=== PATIENT | male | born 1985 | race Caucasian/White ===

== ENCOUNTER 2016-12-17 11:49 | Emergency (ER) | payer OTHER ==
--- NOTE | 2016-12-17 13:30 | DIAGNOSTIC IMAGING REPORT ---
PROCEDURE: XR CHEST 2 VIEW INDICATION: CHEST PAIN TECHNIQUE: PA and lateral views. COMPARISON: None. FINDINGS: Lungs are clear. Heart and mediastinum are normal. Thorax is normal. IMPRESSION: 1. Negative chest.
--- NOTE | 2016-12-17 14:31 | ED ORDER SUMMARY ---
..... Patient: COURTNEY HOWARD OrderSheet [facility] VisitID: [id number] [address] [place] [address] 31y, M Registration Date/Time: 12/17/2016 ORDER SHEET Weight: 77.5 kg (stated) Allergies: No Known Drug Allergy GENERAL ORDERS: Chest 2V Urgent (12:12/17/2016 PHtnchinson DO) (Ack 12:23 LTapper) (14:34 KWilliams R.N.) Bolt Sorter (Continuous) (12:12/17/2016 [facility]) (12:18 DMaziarka R.N.) UA-Culture if indicated Urgent (12:12/17/2016 [facility]) (12:23 LTapper) Cardiac Panel Stat (12:12/17/2016 [facility]) (12:18 DMaziarka R.N.) BNP Urgent [facility] (12:18 DMaziarka R.N.) D-Dimer Urgent (12:12/17/2016 [facility]) (12:18 DMaziarka R.N.) Amylase Urgent (12:12/17/2016 PHtnchinson DO) (12:18 DMaziarka R.N.) TSH Urgent (12:12/17/2016 [facility]) (12:18 DMaziarka R.N.) Ethyl Alcohol Urgent (12:12/17/2016 [facility]) (12:18 DMaziarka R.N.) Oxygen (2 L/min) (NC) (12:12/17/2016 [facility]) (12:18 DMaziarka R.N.) Pulse oximeter (12:12/17/2016 [facility]) (12:18 DMaziarka R.N.) EKG - ER Stat (12:12/17/2016 [facility]) (12:18 DMaziarka R.N.) Vitals (12:12/17/2016 [facility]) (12:18 DMaziarka R.N.) MEDICATION ORDERS: Aspirin PO 325 mg (NOW) (12:18 12/17/2016 [facility]) (12:23 DMaziarka R.N.) Phenergan IV 12.5 mg (HIGH ALERT MEDICATION, NOW) (13:38 12/17/2016 [facility]) (14:05 KWilliams R.N.) IV FLUIDS: IV NS : initial bolus 500 mL (1000 mL/hr), then 500 mL/hr for X3 (NOW) (12:18 12/17/2016 [facility]) (12:24 Dontrellziarka R.N.) Benadryl IV 25 mg (NOW) (13:38 12/17/2016 [facility]) (14:05 KWilliams R.N.) Zofran IV 4 mg (NOW) (13:39 12/17/2016 [facility]) (14:05 KWilliams R.N.) Ativan IV 1 mg (HIGH ALERT MEDICATION, NOW) (14:35 12/17/2016 [facility]) (14:49 KWilliams R.N.) ORDER SHEET NOTES: [Electronically signed by Edith Reis R.N. (18:23 12/17/2016)] [Electronically signed by Michel Amador DO (07:47 12/18/2016)] [Electronically locked/signed by Edith Reis R.N. (18:23 12/17/2016)]
--- NOTE | 2016-12-17 14:31 | ED NURSING NOTES ---
Clinical Report - Nurses [facility] [address] [place] [address] 12/17/2016 11:55 Patient: COURTNEY HOWARD TRIAGE Triage time 11:56. Acuity: LEVEL 2. Chief Complaint: CHEST DISCOMFORT. 12:04 12/17/16. Alert. No acute distress. SEPSIS SCREEN: Sepsis Screen. Negative (no infection suspected/documented). --12:05 Andreia Ferraro R.N. 11:58 12/17/16. BP: 186/114. HR: 94. RR: 24. O2 saturation: 99% on room air. Temp: 97.9 F (oral). Pain level now: 0/10. --12:05 Andreia Ferraro R.N. Weight: 77.5 kg stated. Height/Length: 68 inches Per Patient. BMI: 26. --11:57 Andreia Ferraro R.N. Medications Wellbutrin Oral. --12:02 Andreia Ferraro R.N. HydrOXYzine HCl Oral. --12:02 Andreia Ferraro R.N. Sertraline HCl Oral. --12:02 Andreia Ferraro R.N. Allergies No Known Drug Allergy. --12:02 Andreia Ferraro R.N. Medication/allergy information source: the patient. --12:05 Andreia Ferraro R.N. History Primary physician (BRYNN). ( C/O dizziness, nausea, and chest pain that started in the middle of the night. States he has a cardiac history of "lost of ekgs" but is unable to clarify. Denies being told he ever had an abnormal EKG. No pain or discomfort in triage. States he drank heavily "an unknown amount" the past few days". Last drink 20 hours ago.). This started today. SOCIAL HX: Heavy tobacco smoker (cigarette)- less than 1 pack per day. Alcohol use; consumes beer daily. History of drug use. Is a recovering addict. (opiates). FALL RISK ASSESSMENT: Fall risk assessment completed. No fall risk identified. NUTRITIONAL RISK ASSESSMENT: The nutritional risk assessment revealed no deficiencies. FUNCTIONAL ASSESSMENT: Functional assessment: no impairments noted. LEARNING NEEDS ASSESSMENT: The learning needs assessment revealed no barriers. SKIN INTEGRITY ASSESSMENT: Skin integrity risk assessment completed. No skin integrity risk identified. --12:05 Andreia Ferraro R.N. PROBLEMS: Halter monitor. Chest Pain. --12:03 Andreia Ferraro R.N. ADDITIONAL SURGERIES: no known surgeries. Interventions ID band on patient. To treatment room. --12:05 Andreia Ferraro R.N. PHYSICAL ASSESSMENT 12:12/17/16. Ambulatory to room. GENERAL / NEURO / PSYCH: Alert. Oriented X 4. Appears anxious. RESPIRATORY: Respirations not labored. CVS: Normal sinus rhythm noted. Pulses within normal limits. Capillary refill less than 2 seconds. GI / : Abdomen soft. EXTREMITIES: No lower extremity edema. SKIN: Skin is warm and dry. --12:05 Andreia Ferraro R.N. NURSING PROGRESS NOTES 12:12/17/16. The plan of care for this patient has been created. line service attendant, pulse oximeter and NIBP monitor placed on patient. Patient gowned. Head of bed elevated. Call light placed in reach. Bed placed in lowest position. Brakes of bed on. Patient ready for evaluation- chart flagged. --12:06 Andreia Ferraro R.N. 12:12/17/2016 Site #1 started via IV in the right hand with an 18g angiocath, with aseptic technique and good blood return; one attempt. Blood drawn: rainbow set. Labeled in the presence of the patient and sent to the lab. Saline lock flushed with 10 mL saline. --12:12 Edith Reis R.N. 12:23 12/17/2016 Aspirin PO 325 mg given. Allergies verified and confirmed 5 rights. --12: Edith Reis R.N. 12:24 12/17/2016 Started bag #1 1000 mL IV Fluids IV NS (Saline); bolus of 500 mL over 30 minute(s) then at 500 mL/hr over 3 hour(s) via site #1 via IV pump. Allergies verified and confirmed 5 rights. IV patency established. IV site checked: no pain, redness, or swelling. IV flushed thoroughly pre- and post-medication administration. --12:24 Edith Reis R.N. EKG time: (12:05 PM). EKG was performed by a tech and shown to the ED physician. --12:32 Samantha Benavides 12:36 12/17/16. Patient transported to radiology by stretcher with tech. --12:36 Andreia Ferraro R.N. 12:44 12/17/16. BP: 146/108. HR: 88. RR: 16. O2 saturation: 98%. Pain level now 0/10. --12:47 Edith Reis R.N. The patient is resting quietly. Overall patient status is improved. RESPIRATORY: No respiratory distress. Patient waiting for lab results. --12:47 Edith Reis R.N. Cardiac rhythm: normal sinus rhythm. The patient is calm and resting quietly. ( Up to bathroom to void stone well c/o nausea). --13:37 Edith Reis R.N. 13:49 12/17/2016 PHENERGAN (Promethazine HCl) IVP 12.5 mg given over 3 minute(s) via site #1. Allergies verified and confirmed 5 rights. IV patency established. IV site checked: no pain, redness, or swelling. IV flushed thoroughly pre- and post-medication administration. IVP given by RN. --14:05 Andreia Ferraro R.N. 13:55 12/17/2016 Benadryl (DiphenhydrAMINE HCl) IVP 25 mg given over 3 minute(s) via site #1. Allergies verified, confirmed 5 rights and sedative warning given to the patient. IV patency established. IV site checked: no pain, redness, or swelling. IV flushed thoroughly pre- and post-medication administration. IVP given by RN. --14:05 Andreia Ferraro R.N. 14:00 12/17/2016 Zofran (Ondansetron HCl) IVP 4 mg given over 2 minute(s) via site #1. Allergies verified and confirmed 5 rights. IV patency established. IV site checked: no pain, redness, or swelling. IV flushed thoroughly pre- and post-medication administration. IVP given by RN. --14:05 Andreia Ferraro R.N. 14:19 12/17/16. BP: 149/100. HR: 86. RR: 18. O2 saturation: 96%. Pain level now 0/10. --14:21 Edith Reis R.N. Cardiac rhythm: normal sinus rhythm. The patient is resting quietly. Overall patient status is improved. RESPIRATORY: No respiratory distress. --14:21 Edith Reis R.N. ( Made f/u appt for pt with Dr Hooker ([facility]) for ED follow up. 0830am. Information given to pt). --14:43 Andreia Ferraro R.N. 14:40 12/17/2016 IV Fluids IV NS Discontinued: bag #1 infused. Total amount infused: 1000 mL. IV patency established. IV site checked: no pain, redness, or swelling. IV flushed thoroughly. --15:17 Andreia Ferraro R.N. 14:44 12/17/2016 Ativan (LORazepam) IVP 0.5 mg given over 2 minute(s) via site #1. Allergies verified, confirmed 5 rights and sedative warning given to the patient. IV patency established. IV site checked: no pain, redness, or swelling. IV flushed thoroughly pre- and post-medication administration. IVP given by RN. --14:49 Andreia Ferraro R.N. DISPOSITION / DISCHARGE 15:01 12/17/16. Departure time: 1459. Condition at departure: improved and stable. No learning barriers present. Discharge instructions provided and reviewed with the patient. Reviewed medication(s) side effects, precautions, dosing and course information. Prescription(s) given to the patient. Patient verbalized understanding. Written instructions provided in German. ( written instructions for followup appt tomorrow at 0830 am with MD Morro at [facility], pt verbalizes understanding.). The patient was discharged by the physician. He was discharged home. He left the Emergency Department ambulatory and via (hopelink). --15:01 Andreia Ferraro R.N. 14:59 12/17/16. BP: 142/87. HR: 88. RR: 18. O2 saturation: 99% on room air. Temp: 98.3 F (oral). Pain level now 0/10. --15:01 Andreia Ferraro R.N. Locked/Released at 12/17/2016 18:23 by Edith Reis R.N.
--- NOTE | 2016-12-17 14:31 | ED CLINICAL REPORT ---
Clinical Report - Physicians/Mid Levels [facility] [address] [place] [address] 12/17/2016 11:55 Patient: COURTNEY HOWARD Time Seen: 12:17. Arrived- By private vehicle. Historian- patient. HISTORY OF PRESENT ILLNESS Chief Complaint: CHEST DISCOMFORT. At its maximum, severity described as moderate. When seen in the E.D., severity described as moderate. Modifying factors- worsened by movement. Relieved by rest. It is described as dull and it is described as located in the right chest, central chest and left chest area. No radiation. This started yesterday and is still present. It was gradual in onset and has been waxing/waning. Onset during light activity. No nausea, vomiting, difficulty breathing or diaphoresis. (C/O dizziness, nausea, and chest pain that started in the middle of the night. States he has a cardiac history of "lost of ekgs" but is unable to clarify. Denies being told he ever had an abnormal EKG. No pain or discomfort in triage. States he drank heavily "an unknown amount" the past few days". Last drink 20 hours ago.). Similar symptoms previously: Occasionally. Recent medical care: Not recently seen/assessed. REVIEW OF SYSTEMS No fever, chills, cough, pedal edema or calf pain. No fainting episodes, headache, sore throat, blurred vision or abdominal pain. No black stools, difficulty with urination, skin rash, enlarged lymph nodes or joint pain. No bloody stools. All systems otherwise negative, except as recorded above. PAST HISTORY PROBLEMS: Holter monitor. Chest Pain. Depression. Anxiety SURGERIES: no known surgeries. Additional Surgeries: no known surgeries. Medications: Sertraline HCl Oral. HydrOXYzine HCl Oral. Wellbutrin Oral. Allergies: No Known Drug Allergy. SOCIAL HISTORY Smoker- current status unknown. Occasional alcohol use. History of drug use: marijuana. Residence: [place]. Patient is unemployed. ADDITIONAL NOTES The nursing notes have been reviewed. PHYSICAL EXAM Vital Signs: 12/17/2016 11:58 BP: 186/114. HR: 94. RR: 24. O2 saturation: 99%. Temp: 97.9 F. Pain level now: 0/10. Appearance: Alert. Oriented X3. Anxious. Patient in mild distress. No marfanoid habitus. Eyes: Eyes normal inspection. No scleral icterus or pale conjunctivae. ENT: Pharynx normal. No pharyngeal erythema or tonsillar exudate. The mucous membranes are not dry. Neck: Normal inspection. Neck supple. CVS: Normal heart rate and rhythm. Heart sounds normal. Pulses normal. Respiratory: No respiratory distress. Breath sounds normal. Chest nontender. Abdomen: Soft and nontender. Back: Normal external inspection. Skin: Skin warm and dry. Normal skin color. No rash. Normal skin turgor. Extremities: Extremities exhibit normal ROM. No calf tenderness. No lower extremity edema. Neuro: Oriented X 3. No motor deficit. LABS, X-RAYS, AND EKG EKG: EKG time: (12:05). Normal sinus rhythm. Rate: 90. Normal P waves. Normal JOSELYN. Normal QRS complex. Normal axis. Normal ST and T waves. EKG unchanged when compared with prior EKG. (no change from [id number]). The study has been interpreted contemporaneously by me. The EKG appears to be a good tracing. Rhythm Strip #1: Normal sinus rhythm. Regular rhythm. Narrow QRS complexes. No ectopy. Chest X-ray: No acute disease. Normal lung markings present. Normal heart size. Mediastinum normal. Great vessels normal. No infiltrate. Views: PA and lateral. Technique: good. The X-rays were interpreted contemporaneously by me. Laboratory Tests: UA-Culture if indicated: (SAJI: 12/17/2016 13:43) ( MsgRcvd 12/17/2016 13:59) Final results Test Result Flag Units (Reference) URINE COLOR YELLOW URINE APPEARANCE CLEAR URINE GLUCOSE NEGATIVE (NEGATIVE) URINE BILIRUBIN NEGATIVE (NEGATIVE) URINE KETONE NEGATIVE (NEGATIVE) URINE SPECIFIC GRAVITY 1.010 (1.010-1.030) URINE PH 7.5 (5.0-8.0) URINE PROTEIN NEGATIVE (NEGATIVE) URINE UROBILINOGEN 0.2 EU/dL (0.2-1.0) URINE NITRITE NEGATIVE (NEGATIVE) URINE BLOOD NEGATIVE (NEGATIVE) URINE LEUK ESTERASE NEGATIVE (NEGATIVE) URINE RBC RARE rbc/hpf (0-1) URINE WBC RARE wbc/hpf (0-1) URINE EPITHELIAL CELLS RARE EPI/hpf (0-5) URINE BACTERIA NONE SEEN (NONE SEEN) URINE COMMENT CULT NOT INDICATED URINE CULTURES ARE SET-UP BASED ON THE FOLLOWING CRITERIA:POSITIVE NITRITEPOSITIVE LEUKOCYTE ESTERASEGREATER THAN 10 WHITE BLOOD CELLSMODERATE (2+) OR GREATER BACTERIA CBC w Diff: (SAJI: 12/17/2016 12:05) ( [facility] 12/17/2016 12:44) Final results Test Result Flag Units (Reference) WHITE BLOOD COUNT 6.9 K/uL (4.5-11.5) RED BLOOD COUNT 5.06 M/uL (4.50-5.90) HEMOGLOBIN 15.2 gm/dL (13.5-17.5) HEMATOCRIT 45.3 % (41.0-53.0) MEAN CELL VOLUME 89 fL (80-100) MEAN CORPUSCULAR HGB 30 pg (26-34) MEAN CORPUSCULAR HGB CONC 34 g/dL (31-37) RED CELL DISTRIBUTION WIDTH 12.2 % (11.6-14.8) PLATELET COUNT 220 K/uL (150-400) LYMPH % 23.7 L % (25-40) MONO % 4.4 % (3-14) GRANULOCYTE % 71.9 [id number]: (SAJI: 12/17/2016 12:05) ( [facility] 12/17/2016 12:51) Final results Test Result Flag Units (Reference) D-DIMER QUANTITATIVE 0.28 ug/mLFEU (0.27-0.52) The primary value of this quantitative assay relates toits negative predictive value (i.e. exclusion) of pulmonaryembolism/deep vein thrombosis/DIC.Elevated levels of d-dimer may also occur with:, age, cancer, inflammation, liver disease,post-op, infection, hematoma, coronary disease, peripheralarteriopathy, bleeding disorders and thrombolytic treatment.Results should be correlated with other clinical andradiological data.Testing Methodology: Latex Immunoassay BNP: (SAJI: 12/17/2016 12:05) ( [facility] 12/17/2016 13:16) Final results Test Result Flag Units (Reference) B-TYPE NATRIURETIC PEPTIDE < 5.0 L pg/ml (5-100) CHEM 13 PANEL: (SAJI: 12/17/2016 12:05) ( MsgRcvd 12/17/2016 14:30) Final results Test Result Flag Units (Reference) GLUCOSE 116 H mg/dL (70-110) BUN 14 mg/dL (7-18) CREATININE 0.7 mg/dL (0.6-1.3) Estimated GFR >60 mL/min Estimated GFR- >60 mL/min Note: Persistent reduction over 3 months in eGFR<60 mL/min/1.73 m2 defines CKD. Patients with eGFR values>=60 mL/min/1.73 m2 may also have CKD if evidence ofpersistent proteinuria. Additional information may be foundat [email or web address].org. SODIUM 138 mmol/L (136-145) POTASSIUM 4.3 mmol/L (3.5-5.1) CHLORIDE 99 mmol/L (98-107) CARBON DIOXIDE 28 mmol/L (21-32) CALCIUM 9.3 mg/dL (8.5-10.1) TOTAL PROTEIN 7.2 g/dL (6.4-8.2) ALBUMIN 3.9 g/dL (3.3-5.0) BILIRUBIN, TOTAL 0.6 mg/dL (0.0-1.0) ALKALINE PHOSPHATASE 93 U/L (46-116) AST (SGOT) 67 H U/L (15-37) ALT (SGPT) 139 H U/L (12-78) MAGNESIUM 1.7 L mg/dL (1.8-2.4) AMYLASE 41 U/L (25-115) CPK 95 U/L (24-260) TROPONIN I <0.05 ng/mL (0.00-1.5) TROPONIN REFERENCE RANGE:<0.1 NEGATIVE0.1-1.5 INDETERMINANT>1.5 POSITIVE ETHYL ALCOHOL 14 H mg/dL (3-10) THYROID STIMULATING HORMONE 2.687 uIU/mL (0.34-3.74) . Pulse Oximetry: 12/17/2016 11:58 O2 saturation: 99%. (FIO2 - room air). Interpretation: normal. PROGRESS AND PROCEDURES Course of Care: Normal Saline 1 liter IVPB given. ASA 325 mg PO given. Ativan 1mg IVP given. Benadryl 25 mg IVP given. Phenergan 12.5 mg IVP given. Zofran 4 mg IVP given. 14:34 12/17/16. Work up back and essentially unremarkable. After long discussion with pt he now admits to being very anxious and is requesting "something for anxiety". He states that he is "about a month out" from an appt with his pcp -and cannot make it any sooner. Patient/family counseled. Old ED records reviewed. (PDMP: was taking suboxone last RX 07/24/2016 #24). Disposition: Discharged. Condition: stable and improved. CLINICAL IMPRESSION Nausea. Atypical chest pain .12 lead EKG performed. Essential hypertension. Abnormal liver function test: AST/SGOT and ALT/SGPT. Anxiety reaction. INSTRUCTIONS Do not work for three days. Avoid alcohol and NSAIDS. Examples of NSAIDS include aspirin, ibuprofen (Advil) and naproxen (Aleve). Avoid fatty, fried/greasy, lactose-containing (such as milk, cheese and ice cream), salty and spicy foods. Drink plenty of fluids. Do not smoke. Seek medical help to quit smoking. No alcohol. Warnings: Further evaluation is necessary in order to recheck abnormal lab, obtain test results, conduct further tests and assess the possibility of serious illness. It is very important to follow up with a physician. SEDATIVE MEDICATION: You were given sedative medication during your visit. Do not drive or operate dangerous machinery. CONTROLLED SUBSTANCE WARNINGS. GENERAL WARNINGS: Return or contact your physician immediately if your condition worsens or changes unexpectedly, if not improving as expected, or if other problems arise. Your Current Medications: CONTINUE TAKING THE FOLLOWING MEDICATIONS: HydrOXYzine HCl Oral. Sertraline HCl Oral. Wellbutrin Oral. Prescription Medications: Zofran 4 mg: Take 1 orally every six hours as needed for nausea/vomiting. Dispense ten (10). No refills. Substitution is permissible. Ativan 1 mg: take 1 orally every 8 hours as needed for anxiety. Dispense five (5). No refill. Substitution is permissible. Prilosec 20 mg capsules: Take 1 capsule orally once daily. Dispense fifteen (15). No refills. Substitution is permissible. Follow-up: Follow up with your doctor Morro tomorrow in about two days. Reason for referral: AN APPOINTMENT HAS BEEN MADE FOR YOU FOR 8:30 AM TOMORROW. Screening today revealed the patient's blood pressure to be in the hypertensive range. The patient should follow up with a primary care provider for blood pressure management. (Electronically signed by Michel Amador DO 12/18/2016 7:47)
--- NOTE | 2016-12-17 14:31 | ED ORDER SUMMARY ---
..... Patient: COURTNEY HOWARD OrderSheet [facility] VisitID: [id number] [address] [place] [address] 31y, M Registration Date/Time: 12/17/2016 ORDER SHEET Weight: 77.5 kg (stated) Allergies: No Known Drug Allergy GENERAL ORDERS: Chest 2V Urgent (12:12/17/2016 PHkychinson DO) (Ack 12:23 LTapper) (14:34 KWilliams R.N.) Wool Hat Sanding Machine Operator (Continuous) ([facility]/2016 [facility] (12:18 DMaziarka R.N.) UA-Culture if indicated Urgent (12:12/17/2016 [facility]) (12:23 LTapper) Cardiac Panel Stat (12:12/17/2016 [facility]) (12:18 DMaziarka R.N.) BNP Urgent ([facility] (12:18 DMaziarka R.N.) D-Dimer Urgent (12:12/17/2016 [facility]) (12:18 DMaziarka R.N.) Amylase Urgent (12:12/17/2016 PHkychinson DO) (12:18 DMaziarka R.N.) TSH Urgent (12:12/17/2016 [facility]) (12:18 DMaziarka R.N.) Ethyl Alcohol Urgent (12:12/17/2016 [facility]) (12:18 DMaziarka R.N.) Oxygen (2 L/min) (NC) (12:12/17/2016 [facility]) (12:18 DMaziarka R.N.) Pulse oximeter (12:12/17/2016 [facility]) (12:18 DMaziarka R.N.) EKG - ER Stat (12:12/17/2016 [facility] (12:18 DMaziarka R.N.) Vitals (12:12/17/2016 [facility]) (12:18 DMaziarka R.N.) MEDICATION ORDERS: Aspirin PO 325 mg (NOW) (12:18 12/17/2016 [facility]) (12:23 DMaziarka R.N.) Phenergan IV 12.5 mg (HIGH ALERT MEDICATION, NOW) (13:38 12/17/2016 [facility]) (14:05 KWilliams R.N.) IV FLUIDS: IV NS : initial bolus 500 mL (1000 mL/hr), then 500 mL/hr for X3 (NOW) (12:18 12/17/2016 [facility]) (12:24 Dontrellziarka R.N.) Benadryl IV 25 mg (NOW) (13:38 12/17/2016 [facility]) (14:05 KWilliams R.N.) Zofran IV 4 mg (NOW) (13:39 12/17/2016 [facility]) (14:05 KWilliams R.N.) Ativan IV 1 mg (HIGH ALERT MEDICATION, NOW) (14:35 12/17/2016 [facility]) (14:49 KWilliams R.N.) ORDER SHEET NOTES: [Electronically signed by Edith Reis R.N. (18:23 12/17/2016)] [Electronically signed by Michel Amador DO (07:47 12/18/2016)] [Electronically locked/signed by Edith Reis R.N. (18:23 12/17/2016)]
--- NOTE | 2016-12-18 07:47 | ED MED RECONCILIATION SUMMARY ---
Patient: COURTNEY HOWARD Medication Reconciliation Report [facility] VisitID: [id number] [address] [place] [address] 31y, M Registration Date/Time: 12/17/2016 Weight: 77.5 kg Height/Length: 68 in. BMI: 26.0 ALLERGIES: No Known Drug Allergy The patient's Home Medications are listed below: CONTINUE TAKING THE FOLLOWING MEDICATIONS: HydrOXYzine HCl Oral Sertraline HCl Oral Wellbutrin Oral The source(s) of the original Home Medication information: patient The following Medications were given to the patient in the Emergency Department: Aspirin [PO] PO 325 mg, administered: 12/17/2016 12:23:00 PM IV NS IV Fluids bolus 500 mL over 30 minute(s), then 500 mL/hr, administered: 12/17/2016 12:24:00 PM PHENERGAN [IVP] IVP 12.5 mg, administered: 12/17/2016 1:49:00 PM Benadryl [IVP] IVP 25 mg, administered: 12/17/2016 1:55:00 PM Zofran [IVP] IVP 4 mg, administered: 12/17/2016 2:00:00 PM Ativan [IVP] IVP 0.5 mg, administered: 12/17/2016 2:44:00 PM The following Medications were prescribed to the patient: Zofran 4 mg: Take 1 orally every six hours as needed for nausea/vomiting. Dispense ten (10). No refills. Substitution is permissible. -- Michel Amador DO Ativan 1 mg: take 1 orally every 8 hours as needed for anxiety. Dispense five (5). No refill. Substitution is permissible. -- Michel Amador DO Prilosec 20 mg capsules: Take 1 capsule orally once daily. Dispense fifteen (15). No refills. Substitution is permissible. -- Michel Amador DO
--- NOTE | 2016-12-18 07:47 | ED MAR SUMMARY ---
..... Medication Administration Record [facility] [address] [place] [address] Patient: COURTNEY HOWARD Visit ID: [id number] 31y, M Weight: 77.5 kg Height/Length: 68 in BMI: 26 ALLERGIES: No Known Drug Allergy Given 12:23 12/17/2016 Edith Reis R.N. Medication Administered: ASPIRIN [PO], Dose: 325 mg PO. Medication Ordered: Aspirin PO 325 mg (NOW). Start 12:24 12/17/2016 Edith Reis R.N., Stop 14:40 12/17/2016 Andreia Ferraro R.N. Medication Administered: IV NS (SALINE), Dose: IV Fluids over 3 hour(s), Rate: 500 mL/hr, Bolus: 500 mL over 30 minute(s), Dispensed: 1000 mL bag, Site: #1 right hand. Medication Ordered: IV NS : initial bolus 500 mL (1000 mL/hr), then 500 mL/hr for X3 (NOW). Given 13:49 12/17/2016 Andreia Ferraro R.N. Medication Administered: PHENERGAN [IVP] (PROMETHAZINE HCL), Dose: 12.5 mg IVP over 3 minute(s), Site: #1 right hand. Medication Ordered: Phenergan IV 12.5 mg (HIGH ALERT MEDICATION, NOW). Given 13:55 12/17/2016 Andreia Ferraro R.N. Medication Administered: BENADRYL [IVP] (DIPHENHYDRAMINE HCL), Dose: 25 mg IVP over 3 minute(s), Site: #1 right hand. Medication Ordered: Benadryl IV 25 mg (NOW). Given 14:00 12/17/2016 Andreia Ferraro R.N. Medication Administered: ZOFRAN [IVP] (ONDANSETRON HCL), Dose: 4 mg IVP over 2 minute(s), Site: #1 right hand. Medication Ordered: Zofran IV 4 mg (NOW). Given 14:44 12/17/2016 Andreia Ferraro R.N. Medication Administered: ATIVAN [IVP] (LORAZEPAM), Dose: 0.5 mg IVP over 2 minute(s), Site: #1 right hand. Medication Ordered: Ativan IV 1 mg (HIGH ALERT MEDICATION, NOW).
--- NOTE | 2016-12-18 07:47 | ED MAR SUMMARY ---
..... Medication Administration Record [facility] [address] [place] [address] Patient: COURTNEY HOWARD Visit ID: [id number] 31y, M Weight: 77.5 kg Height/Length: 68 in BMI: 26 ALLERGIES: No Known Drug Allergy Given 12:23 12/17/2016 Edith Reis R.N. Medication Administered: ASPIRIN [PO], Dose: 325 mg PO. Medication Ordered: Aspirin PO 325 mg (NOW). Start 12:24 12/17/2016 Edith Reis R.N., Stop 14:40 12/17/2016 Andreia Ferraro R.N. Medication Administered: IV NS (SALINE), Dose: IV Fluids over 3 hour(s), Rate: 500 mL/hr, Bolus: 500 mL over 30 minute(s), Dispensed: 1000 mL bag, Site: #1 right hand. Medication Ordered: IV NS : initial bolus 500 mL (1000 mL/hr), then 500 mL/hr for X3 (NOW). Given 13:49 12/17/2016 Andreia Ferraro R.N. Medication Administered: PHENERGAN [IVP] (PROMETHAZINE HCL), Dose: 12.5 mg IVP over 3 minute(s), Site: #1 right hand. Medication Ordered: Phenergan IV 12.5 mg (HIGH ALERT MEDICATION, NOW). Given 13:55 12/17/2016 Andreia Ferraro R.N. Medication Administered: BENADRYL [IVP] (DIPHENHYDRAMINE HCL), Dose: 25 mg IVP over 3 minute(s), Site: #1 right hand. Medication Ordered: Benadryl IV 25 mg (NOW). Given 14:00 12/17/2016 Andreia Ferraro R.N. Medication Administered: ZOFRAN [IVP] (ONDANSETRON HCL), Dose: 4 mg IVP over 2 minute(s), Site: #1 right hand. Medication Ordered: Zofran IV 4 mg (NOW). Given 14:44 12/17/2016 Andreia Ferraro R.N. Medication Administered: ATIVAN [IVP] (LORAZEPAM), Dose: 0.5 mg IVP over 2 minute(s), Site: #1 right hand. Medication Ordered: Ativan IV 1 mg (HIGH ALERT MEDICATION, NOW).
--- NOTE | 2016-12-18 07:47 | ED DISCHARGE INSTRUCTIONS ---
Patient: COURTNEY HOWARD General Instructions [facility] VisitID: [id number] [place] [address] 31y, M Registration Date/Time: 12/17/2016 Nausea. Atypical chest pain .12 lead EKG performed. Essential hypertension. Abnormal liver function test: AST/SGOT and ALT/SGPT. Anxiety reaction. INSTRUCTIONS Do not work for three days. Avoid alcohol and NSAIDS. Examples of NSAIDS include aspirin, ibuprofen (Advil) and naproxen (Aleve). Avoid fatty, fried/greasy, lactose-containing (such as milk, cheese and ice cream), salty and spicy foods. Drink plenty of fluids. Do not smoke. Seek medical help to quit smoking. No alcohol. Warnings: Further evaluation is necessary in order to recheck abnormal lab, obtain test results, conduct further tests and assess the possibility of serious illness. It is very important to follow up with a physician. SEDATIVE MEDICATION: You were given sedative medication during your visit. Do not drive or operate dangerous machinery. CONTROLLED SUBSTANCE WARNINGS. GENERAL WARNINGS: Return or contact your physician immediately if your condition worsens or changes unexpectedly, if not improving as expected, or if other problems arise. Your Current Medications: CONTINUE TAKING THE FOLLOWING MEDICATIONS: HydrOXYzine HCl Oral. Sertraline HCl Oral. Wellbutrin Oral. Prescription Medications: Zofran 4 mg: Take 1 orally every six hours as needed for nausea/vomiting. Dispense ten (10). No refills. Substitution is permissible. Ativan 1 mg: take 1 orally every 8 hours as needed for anxiety. Dispense five (5). No refill. Substitution is permissible. Prilosec 20 mg capsules: Take 1 capsule orally once daily. Dispense fifteen (15). No refills. Substitution is permissible. Follow-up: Follow up with your doctor Morro tomorrow in about two days. Reason for referral: AN APPOINTMENT HAS BEEN MADE FOR YOU FOR 8:30 AM TOMORROW. Screening today revealed the patient's blood pressure to be in the hypertensive range. The patient should follow up with a primary care provider for blood pressure management. ADDITIONAL INFORMATION Chest Pain, Noncardiac Based on your visit today, the exact cause of your chest pain is not certain. Your condition does not seem serious and your pain does not appear to be coming from your heart. However, sometimes the signs of a serious problem take more time to appear. Therefore, please watch for the warning signs listed below. Home Care: Rest today and avoid strenuous activity. Take any prescribed medicine as directed. Follow Up with your doctor or this facility as instructed or if you do not start to feel better within 24 hours. Get Prompt Medical Attention if any of the following occur: A change in the type of pain: if it feels different, becomes more severe, lasts longer, or begins to spread into your shoulder, arm, neck, jaw or back Shortness of breath or increased pain with breathing Cough with dark colored sputum (phlegm) or blood Weakness, dizziness, or fainting Fever of 100.4F (38C) or higher, or as directed by your healthcare provider Swelling, pain or redness in one leg High Blood Pressure -- To Be Confirmed [No Tx] Your blood pressure was higher today than normal. Sometimes anxiety or pain can cause a temporary rise in blood pressure that later returns to normal. If your blood pressure is high on one measurement, this does not mean that you have hypertension (a chronic illness). However, you must have your blood pressure measured again within the next few days to find out if its still high. A normal blood pressure is 120/80 or less. The first (top) number is the "systolic" pressure. The second (bottom) number is the "diastolic" pressure. Hypertension exists when either the top number is 140 or higher, OR the bottom number is 90 or higher on repeated measurements. Blood pressure in the range of 120-140 (systolic) or 80-89 (diastolic) is considered "pre-hypertension". This means your are at risk for getting hypertension. You should have regular blood pressure checks to be sure your blood pressure is not rising. Home Care: Measure your blood pressure on 3 different days and write down the results. This can be done at your doctor's office or this facility. Some pharmacies and grocery stores offer automated blood pressure machines for your use. Follow Up: If your blood pressure is "high" (over 120/80) on 2 out of 3 days, you will need to follow up with your doctor for further evaluation and treatment. DO NOT PUT THIS OFF! Untreated high blood pressure increases the risk for heart attack, also known as acute myocardial infarction, or AMI, and stroke. It is a treatable condition. Get Prompt Medical Attention if any of the following occur: Chest pain or shortness of breath Severe headache Throbbing or rushing sound in the ears Nosebleed Sudden severe abdominal pain Extreme drowsiness, confusion or fainting Dizziness or vertigo (dizziness with spinning sensation) Weakness of an arm or leg or one side of the face Difficulty with speech or vision How To Quit Smoking Smoking is one of the hardest habits to break. About half of all those who have ever smoked have been able to quit, and most of those (about 70%) who still smoke want to quit. Here are some of the best ways to stop smoking. Keep Trying: It takes most smokers about 8 tries before they are finally able to fully quit. So, the more often you try and fail, the better your chance of quitting the next time! So, don't give up! Go Cold [place]: Most ex-smokers quit cold turkey. Trying to cut back gradually doesn't seem to work as well, perhaps because it continues the smoking habit. Also, it is possible to fool yourself by inhaling more while smoking fewer cigarettes. This results in the same amount of nicotine in your body! Get Support: Support programs can make an important difference, especially for the heavy smoker. These groups offer lectures, methods to change your behavior and peer support. Call the free national Quitline for more information. 540-PRKQ-LAN (296-931-1529). Low-cost or free programs are offered by many hospitals, local chapters of the [place] [employer] (883-550-0125) and the [place] [employer] (970-208-5619). Support at home is important too. Non-smokers can help by offering praise and encouragement. If the smoker fails to quit, encourage them to try again! Vxll-Fnc-[place] Medicines: For those who can't quit on their own, Nicotine Replacement Therapy (NRT) may make quitting much easier. Certain aids such as the nicotine patch, gum and lozenge are available without a prescription. However, it is best to use these under the guidance of your doctor. The skin patch provides a steady supply of nicotine to the body. Nicotine gum and lozenge gives temporary bursts of low levels of nicotine. Both methods take the edge off the craving for cigarettes. WARNING: If you feel symptoms of nicotine overdose, such as nausea, vomiting, dizziness, weakness, or fast heartbeat, stop using these and see your doctor. Prescription Medicines: After evaluating your smoking patterns and prior attempts at quitting, your doctor may offer a prescription medicine such as bupropion (Zyban, Wellbutrin), varenicline (Chantix, Champix), a niocotine inhaler or nasal spray. Each has its unique advantage and side effects which your doctor can review with you. Health Benefits Of Quitting: The benefits of quitting start right away and keep improving the longer you go without smokin minutes: blood pressure and pulse return to normal 8 hours: oxygen levels return to normal 2 days: ability to smell and taste begins to improve as damaged nerves start to regrow 2-3 weeks: circulation and lung function improves 1-9 months: decreased cough, congestion and shortness of breath; less tired 1 year: risk of heart attack decreases by half 5 years: risk of lung cancer decreases by half; risk of stroke becomes the same as a non-smoker For information about how to quit smoking, visit the following links: National Cancer Terry , Clearing the Air, Quit Smoking Today - an online booklet. http://www.smokefree.gov/pubs/clearing_the_air.pdf Smokefree.gov http://smokefree.gov/ QuitNet http://www.quitnet.com/ Ondansetron Hydrochloride Oral tablet What is this medicine? ONDANSETRON (on DWAYNE se sherlyn) is used to treat nausea and vomiting caused by chemotherapy. It is also used to prevent or treat nausea and vomiting after surgery. How should I use this medicine? Take this medicine by mouth with a glass of water. Follow the directions on your prescription label. Take your doses at regular intervals. Do not take your medicine more often than directed. Talk to your [employer] sales consultant regarding the use of this medicine in children. Special care may be needed. What side effects may I notice from receiving this medicine? Side effects that you should report to your doctor or health urgent care as soon as possible: allergic reactions like skin rash, itching or hives, swelling of the face, lips or tongue breathing problems dizziness fast or irregular heartbeat feeling faint or lightheaded, falls fever and chills swelling of the hands or feet tightness in the chest Side effects that usually do not require medical attention (report to your doctor or health urgent care if they continue or are bothersome): constipation or diarrhea headache What may interact with this medicine? Do not take this medicine with any of the following medications: -apomorphine -cisapride -dofetilide -dronedarone -pimozide -thioridazine -ziprasidone This medicine may also interact with the following medications: -carbamazepine -phenytoin -rifampicin -tramadol -other medicines that prolong the QT interval (cause an abnormal heart rhythm) What if I miss a dose? If you miss a dose, take it as soon as you can. If it is almost time for your next dose, take only that dose. Do not take double or extra doses. Where should I keep my medicine? Keep out of the reach of children. Store between 2 and 30 degrees C (36 and 86 degrees F). Throw away any unused medicine after the expiration date. What should I tell my health care provider before I take this medicine? They need to know if you have any of these conditions: heart disease history of irregular heartbeat liver disease low levels of magnesium or potassium in the blood an unusual or allergic reaction to ondansetron, granisetron, other medicines, foods, dyes, or preservatives or trying to get breast-feeding What should I watch for while using this medicine? Check with your doctor or health urgent care right away if you have any sign of an allergic reaction. Lorazepam Oral tablet What is this medicine? LORAZEPAM (raul A ze evans) is a benzodiazepine. It is used to treat anxiety. How should I use this medicine? Take this medicine by mouth with a glass of water. Follow the directions on the prescription label. If it upsets your stomach, take it with food or milk. Take your medicine at regular intervals. Do not take it more often than directed. Do not stop taking except on the advice of your doctor or health urgent care. Talk to your [employer] sales consultant regarding the use of this medicine in children. Special care may be needed. What side effects may I notice from receiving this medicine? Side effects that you should report to your doctor or health urgent care as soon as possible: changes in vision confusion depression mood changes, excitability or aggressive behavior movement difficulty, staggering or jerky movements muscle cramps restlessness weakness or tiredness Side effects that usually do not require medical attention (report to your doctor or health urgent care if they continue or are bothersome): constipation or diarrhea difficulty sleeping, nightmares dizziness, drowsiness headache nausea, vomiting What may interact with this medicine? barbiturate medicines for inducing sleep or treating seizures, like phenobarbital clozapine medicines for depression, mental problems or psychiatric disturbances medicines for sleep phenytoin probenecid theophylline valproic acid What if I miss a dose? If you miss a dose, take it as soon as you can. If it is almost time for your next dose, take only that dose. Do not take double or extra doses. Where should I keep my medicine? Keep out of the reach of children. This medicine can be abused. Keep your medicine in a safe place to protect it from theft. Do not share this medicine with anyone. Selling or giving away this medicine is dangerous and against the law. Store at room temperature between 20 and 25 degrees C (68 and 77 degrees F). Protect from light. Keep container tightly closed. Throw away any unused medicine after the expiration date. What should I tell my health care provider before I take this medicine? They need to know if you have any of these conditions: alcohol or drug abuse problem bipolar disorder, depression, psychosis or other mental health condition glaucoma kidney or liver disease lung disease or breathing difficulties myasthenia gravis Parkinson's disease seizures or a history of seizures suicidal thoughts an unusual or allergic reaction to lorazepam, other benzodiazepines, foods, dyes, or preservatives or trying to get breast-feeding What should I watch for while using this medicine? Visit your doctor or health urgent care for regular checks on your progress. Your body may become dependent on this medicine, ask your doctor or health urgent care if you still need to take it. However, if you have been taking this medicine regularly for some time, do not suddenly stop taking it. You must gradually reduce the dose or you may get severe side effects. Ask your doctor or health urgent care for advice before increasing or decreasing the dose. Even after you stop taking this medicine it can still affect your body for several days. You may get drowsy or dizzy. Do not drive, use machinery, or do anything that needs mental alertness until you know how this medicine affects you. To reduce the risk of dizzy and fainting spells, do not stand or sit up quickly, especially if you are an older patient. Alcohol may increase dizziness and drowsiness. Avoid alcoholic drinks. Do not treat yourself for coughs, colds or allergies without asking your doctor or health urgent care for advice. Some ingredients can increase possible side effects. Omeprazole Magnesium Gastro-resistant tablet What is this medicine? OMEPRAZOLE (oh ME pray zol) prevents the production of acid in the stomach. It is used to treat the symptoms of heartburn. You can buy this medicine without a prescription. This product is not for long-term use, unless otherwise directed by your doctor or health urgent care. How should I use this medicine? Take this medicine by mouth. Follow the directions on the product label. If you are taking this medicine without a prescription, take one tablet every day. Do not use for longer than 14 days or repeat a course of treatment more often than every 4 months unless directed by a doctor or healthcare professional. Take your dose at regular intervals every 24 hours. Swallow the tablet whole with a drink of water. Do not crush, break or chew. This medicine works best if taken on an empty stomach 30 minutes before breakfast. If you are using this medicine with the prescription of your doctor or healthcare professional, follow the directions you were given. Do not take your medicine more often than directed. Talk to your [employer] retailer sales consultant regarding the use of this medicine in children. Special care may be needed. What side effects may I notice from receiving this medicine? Side effects that you should report to your doctor or health urgent care as soon as possible: allergic reactions like skin rash, itching or hives, swelling of the face, lips, or tongue bone, muscle or joint pain breathing problems chest pain or chest tightness dark yellow or brown urine diarrhea dizziness fast, irregular heartbeat feeling faint or lightheaded fever or sore throat muscle spasm palpitations redness, blistering, peeling or loosening of the skin, including inside the mouth seizures tremors unusual bleeding or bruising unusually weak or tired yellowing of the eyes or skin Side effects that usually do not require medical attention (Report these to your doctor or health urgent care if they continue or are bothersome.): constipation dry mouth headache loose stools nausea What may interact with this medicine? Do not take this medicine with any of the following medications: atazanavir clopidogrel nelfinavir This medicine may also interact with the following medications: ampicillin certain medicines for anxiety or sleep certain medicines that treat or prevent blood clots like warfarin cyclosporine diazepam digoxin disulfiram iron salts phenytoin prescription medicine for fungal or yeast infection like itraconazole, ketoconazole, voriconazole saquinavir tacrolimus What if I miss a dose? If you miss a dose, take it as soon as you can. If it is almost time for your next dose, take only that dose. Do not take double or extra doses. Where should I keep my medicine? Keep out of the reach of children. Store at room temperature between 20 and 25 degrees C (68 and 77 degrees F). Protect from light and moisture. Throw away any unused medicine after the expiration date. What should I tell my health care provider before I take this medicine? They need to know if you have any of these conditions: black or bloody stools chest pain difficulty swallowing have had heartburn for over 3 months have heartburn with dizziness, lightheadedness or sweating liver disease stomach pain unexplained weight loss vomiting with blood wheezing an unusual or allergic reaction to omeprazole, other medicines, foods, dyes, or preservatives or trying to get breast-feeding What should I watch for while using this medicine? It can take several days before your heartburn gets better. Check with your doctor or health urgent care if your condition does not start to get better, or if it gets worse. Do not treat diarrhea with over the counter products. Contact your doctor if you have diarrhea that lasts more than 2 days or if it is severe and watery. Do not treat yourself for heartburn with this medicine for more than 14 days in a row. You should only use this medicine for a 2-week treatment period once every 4 months. If your symptoms return shortly after your therapy is complete, or within the 4 month time frame, call your doctor or health urgent care. You have been given the following additional information: Chest Pain, Noncardiac Hypertension, To Be Confirmed Smoking Cessation Ondansetron Hydrochloride Oral tablet Lorazepam Oral tablet Omeprazole Magnesium Gastro-resistant tablet Do not work for three days. (Electronically signed by Michel Amador DO 12/18/2016 7:47)
--- NOTE | 2016-12-18 07:47 | ED DISCHARGE INSTRUCTIONS ---
Patient: COURTNEY HOWARD General Instructions [facility] VisitID: [id number] [place] [address] 31y, M Registration Date/Time: 12/17/2016 Nausea. Atypical chest pain .12 lead EKG performed. Essential hypertension. Abnormal liver function test: AST/SGOT and ALT/SGPT. Anxiety reaction. INSTRUCTIONS Do not work for three days. Avoid alcohol and NSAIDS. Examples of NSAIDS include aspirin, ibuprofen (Advil) and naproxen (Aleve). Avoid fatty, fried/greasy, lactose-containing (such as milk, cheese and ice cream), salty and spicy foods. Drink plenty of fluids. Do not smoke. Seek medical help to quit smoking. No alcohol. Warnings: Further evaluation is necessary in order to recheck abnormal lab, obtain test results, conduct further tests and assess the possibility of serious illness. It is very important to follow up with a physician. SEDATIVE MEDICATION: You were given sedative medication during your visit. Do not drive or operate dangerous machinery. CONTROLLED SUBSTANCE WARNINGS. GENERAL WARNINGS: Return or contact your physician immediately if your condition worsens or changes unexpectedly, if not improving as expected, or if other problems arise. Your Current Medications: CONTINUE TAKING THE FOLLOWING MEDICATIONS: HydrOXYzine HCl Oral. Sertraline HCl Oral. Wellbutrin Oral. Prescription Medications: Zofran 4 mg: Take 1 orally every six hours as needed for nausea/vomiting. Dispense ten (10). No refills. Substitution is permissible. Ativan 1 mg: take 1 orally every 8 hours as needed for anxiety. Dispense five (5). No refill. Substitution is permissible. Prilosec 20 mg capsules: Take 1 capsule orally once daily. Dispense fifteen (15). No refills. Substitution is permissible. Follow-up: Follow up with your doctor Morro tomorrow in about two days. Reason for referral: AN APPOINTMENT HAS BEEN MADE FOR YOU FOR 8:30 AM TOMORROW. Screening today revealed the patient's blood pressure to be in the hypertensive range. The patient should follow up with a primary care provider for blood pressure management. ADDITIONAL INFORMATION Chest Pain, Noncardiac Based on your visit today, the exact cause of your chest pain is not certain. Your condition does not seem serious and your pain does not appear to be coming from your heart. However, sometimes the signs of a serious problem take more time to appear. Therefore, please watch for the warning signs listed below. Home Care: Rest today and avoid strenuous activity. Take any prescribed medicine as directed. Follow Up with your doctor or this facility as instructed or if you do not start to feel better within 24 hours. Get Prompt Medical Attention if any of the following occur: A change in the type of pain: if it feels different, becomes more severe, lasts longer, or begins to spread into your shoulder, arm, neck, jaw or back Shortness of breath or increased pain with breathing Cough with dark colored sputum (phlegm) or blood Weakness, dizziness, or fainting Fever of 100.4F (38C) or higher, or as directed by your healthcare provider Swelling, pain or redness in one leg High Blood Pressure -- To Be Confirmed [No Tx] Your blood pressure was higher today than normal. Sometimes anxiety or pain can cause a temporary rise in blood pressure that later returns to normal. If your blood pressure is high on one measurement, this does not mean that you have hypertension (a chronic illness). However, you must have your blood pressure measured again within the next few days to find out if its still high. A normal blood pressure is 120/80 or less. The first (top) number is the "systolic" pressure. The second (bottom) number is the "diastolic" pressure. Hypertension exists when either the top number is 140 or higher, OR the bottom number is 90 or higher on repeated measurements. Blood pressure in the range of 120-140 (systolic) or 80-89 (diastolic) is considered "pre-hypertension". This means your are at risk for getting hypertension. You should have regular blood pressure checks to be sure your blood pressure is not rising. Home Care: Measure your blood pressure on 3 different days and write down the results. This can be done at your doctor's office or this facility. Some pharmacies and grocery stores offer automated blood pressure machines for your use. Follow Up: If your blood pressure is "high" (over 120/80) on 2 out of 3 days, you will need to follow up with your doctor for further evaluation and treatment. DO NOT PUT THIS OFF! Untreated high blood pressure increases the risk for heart attack, also known as acute myocardial infarction, or AMI, and stroke. It is a treatable condition. Get Prompt Medical Attention if any of the following occur: Chest pain or shortness of breath Severe headache Throbbing or rushing sound in the ears Nosebleed Sudden severe abdominal pain Extreme drowsiness, confusion or fainting Dizziness or vertigo (dizziness with spinning sensation) Weakness of an arm or leg or one side of the face Difficulty with speech or vision How To Quit Smoking Smoking is one of the hardest habits to break. About half of all those who have ever smoked have been able to quit, and most of those (about 70%) who still smoke want to quit. Here are some of the best ways to stop smoking. Keep Trying: It takes most smokers about 8 tries before they are finally able to fully quit. So, the more often you try and fail, the better your chance of quitting the next time! So, don't give up! Go Cold [place]: Most ex-smokers quit cold turkey. Trying to cut back gradually doesn't seem to work as well, perhaps because it continues the smoking habit. Also, it is possible to fool yourself by inhaling more while smoking fewer cigarettes. This results in the same amount of nicotine in your body! Get Support: Support programs can make an important difference, especially for the heavy smoker. These groups offer lectures, methods to change your behavior and peer support. Call the free national Quitline for more information. 188-WAWI-GHR (564-704-6276). Low-cost or free programs are offered by many hospitals, local chapters of the [place] [employer] (338-133-6033) and the [place] [employer] (154-477-5548). Support at home is important too. Non-smokers can help by offering praise and encouragement. If the smoker fails to quit, encourage them to try again! Hgyh-Hor-Lkluwzw Medicines: For those who can't quit on their own, Nicotine Replacement Therapy (NRT) may make quitting much easier. Certain aids such as the nicotine patch, gum and lozenge are available without a prescription. However, it is best to use these under the guidance of your doctor. The skin patch provides a steady supply of nicotine to the body. Nicotine gum and lozenge gives temporary bursts of low levels of nicotine. Both methods take the edge off the craving for cigarettes. WARNING: If you feel symptoms of nicotine overdose, such as nausea, vomiting, dizziness, weakness, or fast heartbeat, stop using these and see your doctor. Prescription Medicines: After evaluating your smoking patterns and prior attempts at quitting, your doctor may offer a prescription medicine such as bupropion (Zyban, Wellbutrin), varenicline (Chantix, Champix), a niocotine inhaler or nasal spray. Each has its unique advantage and side effects which your doctor can review with you. Health Benefits Of Quitting: The benefits of quitting start right away and keep improving the longer you go without smokin minutes: blood pressure and pulse return to normal 8 hours: oxygen levels return to normal 2 days: ability to smell and taste begins to improve as damaged nerves start to regrow 2-3 weeks: circulation and lung function improves 1-9 months: decreased cough, congestion and shortness of breath; less tired 1 year: risk of heart attack decreases by half 5 years: risk of lung cancer decreases by half; risk of stroke becomes the same as a non-smoker For information about how to quit smoking, visit the following links: National Cancer [place] , Clearing the Air, Quit Smoking Today - an online booklet. http://www.smokefree.gov/pubs/clearing_the_air.pdf Smokefree.gov http://smokefree.gov/ QuitNet http://www.quitnet.com/ Ondansetron Hydrochloride Oral tablet What is this medicine? ONDANSETRON (on DWAYNE se sherlyn) is used to treat nausea and vomiting caused by chemotherapy. It is also used to prevent or treat nausea and vomiting after surgery. How should I use this medicine? Take this medicine by mouth with a glass of water. Follow the directions on your prescription label. Take your doses at regular intervals. Do not take your medicine more often than directed. Talk to your package dye stand loader regarding the use of this medicine in children. Special care may be needed. What side effects may I notice from receiving this medicine? Side effects that you should report to your doctor or health palliative care specialist as soon as possible: allergic reactions like skin rash, itching or hives, swelling of the face, lips or tongue breathing problems dizziness fast or irregular heartbeat feeling faint or lightheaded, falls fever and chills swelling of the hands or feet tightness in the chest Side effects that usually do not require medical attention (report to your doctor or health palliative care specialist if they continue or are bothersome): constipation or diarrhea headache What may interact with this medicine? Do not take this medicine with any of the following medications: -apomorphine -cisapride -dofetilide -dronedarone -pimozide -thioridazine -ziprasidone This medicine may also interact with the following medications: -carbamazepine -phenytoin -rifampicin -tramadol -other medicines that prolong the QT interval (cause an abnormal heart rhythm) What if I miss a dose? If you miss a dose, take it as soon as you can. If it is almost time for your next dose, take only that dose. Do not take double or extra doses. Where should I keep my medicine? Keep out of the reach of children. Store between 2 and 30 degrees C (36 and 86 degrees F). Throw away any unused medicine after the expiration date. What should I tell my health care provider before I take this medicine? They need to know if you have any of these conditions: heart disease history of irregular heartbeat liver disease low levels of magnesium or potassium in the blood an unusual or allergic reaction to ondansetron, granisetron, other medicines, foods, dyes, or preservatives or trying to get breast-feeding What should I watch for while using this medicine? Check with your doctor or health palliative care specialist right away if you have any sign of an allergic reaction. Lorazepam Oral tablet What is this medicine? LORAZEPAM (raul A ze evans) is a benzodiazepine. It is used to treat anxiety. How should I use this medicine? Take this medicine by mouth with a glass of water. Follow the directions on the prescription label. If it upsets your stomach, take it with food or milk. Take your medicine at regular intervals. Do not take it more often than directed. Do not stop taking except on the advice of your doctor or health palliative care specialist. Talk to your package dye stand loader regarding the use of this medicine in children. Special care may be needed. What side effects may I notice from receiving this medicine? Side effects that you should report to your doctor or health palliative care specialist as soon as possible: changes in vision confusion depression mood changes, excitability or aggressive behavior movement difficulty, staggering or jerky movements muscle cramps restlessness weakness or tiredness Side effects that usually do not require medical attention (report to your doctor or health palliative care specialist if they continue or are bothersome): constipation or diarrhea difficulty sleeping, nightmares dizziness, drowsiness headache nausea, vomiting What may interact with this medicine? barbiturate medicines for inducing sleep or treating seizures, like phenobarbital clozapine medicines for depression, mental problems or psychiatric disturbances medicines for sleep phenytoin probenecid theophylline valproic acid What if I miss a dose? If you miss a dose, take it as soon as you can. If it is almost time for your next dose, take only that dose. Do not take double or extra doses. Where should I keep my medicine? Keep out of the reach of children. This medicine can be abused. Keep your medicine in a safe place to protect it from theft. Do not share this medicine with anyone. Selling or giving away this medicine is dangerous and against the law. Store at room temperature between 20 and 25 degrees C (68 and 77 degrees F). Protect from light. Keep container tightly closed. Throw away any unused medicine after the expiration date. What should I tell my health care provider before I take this medicine? They need to know if you have any of these conditions: alcohol or drug abuse problem bipolar disorder, depression, psychosis or other mental health condition glaucoma kidney or liver disease lung disease or breathing difficulties myasthenia gravis Parkinson's disease seizures or a history of seizures suicidal thoughts an unusual or allergic reaction to lorazepam, other benzodiazepines, foods, dyes, or preservatives or trying to get breast-feeding What should I watch for while using this medicine? Visit your doctor or health palliative care specialist for regular checks on your progress. Your body may become dependent on this medicine, ask your doctor or health palliative care specialist if you still need to take it. However, if you have been taking this medicine regularly for some time, do not suddenly stop taking it. You must gradually reduce the dose or you may get severe side effects. Ask your doctor or health palliative care specialist for advice before increasing or decreasing the dose. Even after you stop taking this medicine it can still affect your body for several days. You may get drowsy or dizzy. Do not drive, use machinery, or do anything that needs mental alertness until you know how this medicine affects you. To reduce the risk of dizzy and fainting spells, do not stand or sit up quickly, especially if you are an older patient. Alcohol may increase dizziness and drowsiness. Avoid alcoholic drinks. Do not treat yourself for coughs, colds or allergies without asking your doctor or health palliative care specialist for advice. Some ingredients can increase possible side effects. Omeprazole Magnesium Gastro-resistant tablet What is this medicine? OMEPRAZOLE (oh ME pray zol) prevents the production of acid in the stomach. It is used to treat the symptoms of heartburn. You can buy this medicine without a prescription. This product is not for long-term use, unless otherwise directed by your doctor or health palliative care specialist. How should I use this medicine? Take this medicine by mouth. Follow the directions on the product label. If you are taking this medicine without a prescription, take one tablet every day. Do not use for longer than 14 days or repeat a course of treatment more often than every 4 months unless directed by a doctor or healthcare professional. Take your dose at regular intervals every 24 hours. Swallow the tablet whole with a drink of water. Do not crush, break or chew. This medicine works best if taken on an empty stomach 30 minutes before breakfast. If you are using this medicine with the prescription of your doctor or healthcare professional, follow the directions you were given. Do not take your medicine more often than directed. Talk to your package dye stand loader regarding the use of this medicine in children. Special care may be needed. What side effects may I notice from receiving this medicine? Side effects that you should report to your doctor or health palliative care specialist as soon as possible: allergic reactions like skin rash, itching or hives, swelling of the face, lips, or tongue bone, muscle or joint pain breathing problems chest pain or chest tightness dark yellow or brown urine diarrhea dizziness fast, irregular heartbeat feeling faint or lightheaded fever or sore throat muscle spasm palpitations redness, blistering, peeling or loosening of the skin, including inside the mouth seizures tremors unusual bleeding or bruising unusually weak or tired yellowing of the eyes or skin Side effects that usually do not require medical attention (Report these to your doctor or health palliative care specialist if they continue or are bothersome.): constipation dry mouth headache loose stools nausea What may interact with this medicine? Do not take this medicine with any of the following medications: atazanavir clopidogrel nelfinavir This medicine may also interact with the following medications: ampicillin certain medicines for anxiety or sleep certain medicines that treat or prevent blood clots like warfarin cyclosporine diazepam digoxin disulfiram iron salts phenytoin prescription medicine for fungal or yeast infection like itraconazole, ketoconazole, voriconazole saquinavir tacrolimus What if I miss a dose? If you miss a dose, take it as soon as you can. If it is almost time for your next dose, take only that dose. Do not take double or extra doses. Where should I keep my medicine? Keep out of the reach of children. Store at room temperature between 20 and 25 degrees C (68 and 77 degrees F). Protect from light and moisture. Throw away any unused medicine after the expiration date. What should I tell my health care provider before I take this medicine? They need to know if you have any of these conditions: black or bloody stools chest pain difficulty swallowing have had heartburn for over 3 months have heartburn with dizziness, lightheadedness or sweating liver disease stomach pain unexplained weight loss vomiting with blood wheezing an unusual or allergic reaction to omeprazole, other medicines, foods, dyes, or preservatives or trying to get breast-feeding What should I watch for while using this medicine? It can take several days before your heartburn gets better. Check with your doctor or health palliative care specialist if your condition does not start to get better, or if it gets worse. Do not treat diarrhea with over the counter products. Contact your doctor if you have diarrhea that lasts more than 2 days or if it is severe and watery. Do not treat yourself for heartburn with this medicine for more than 14 days in a row. You should only use this medicine for a 2-week treatment period once every 4 months. If your symptoms return shortly after your therapy is complete, or within the 4 month time frame, call your doctor or health palliative care specialist. You have been given the following additional information: Chest Pain, Noncardiac Hypertension, To Be Confirmed Smoking Cessation Ondansetron Hydrochloride Oral tablet Lorazepam Oral tablet Omeprazole Magnesium Gastro-resistant tablet Do not work for three days. (Electronically signed by Michel Amador DO 12/18/2016 7:47)
--- NOTE | 2016-12-18 07:47 | ED MED RECONCILIATION SUMMARY ---
Patient: COURTNEY HOWARD Medication Reconciliation Report [facility] VisitID: [id number] [address] [place] [place] [address] 31y, M Registration Date/Time: 12/17/2016 Weight: 77.5 kg Height/Length: 68 in. BMI: 26.0 ALLERGIES: No Known Drug Allergy The patient's Home Medications are listed below: CONTINUE TAKING THE FOLLOWING MEDICATIONS: HydrOXYzine HCl Oral Sertraline HCl Oral Wellbutrin Oral The source(s) of the original Home Medication information: patient The following Medications were given to the patient in the Emergency Department: Aspirin [PO] PO 325 mg, administered: 12/17/2016 12:23:00 PM IV NS IV Fluids bolus 500 mL over 30 minute(s), then 500 mL/hr, administered: 12/17/2016 12:24:00 PM PHENERGAN [IVP] IVP 12.5 mg, administered: 12/17/2016 1:49:00 PM Benadryl [IVP] IVP 25 mg, administered: 12/17/2016 1:55:00 PM Zofran [IVP] IVP 4 mg, administered: 12/17/2016 2:00:00 PM Ativan [IVP] IVP 0.5 mg, administered: 12/17/2016 2:44:00 PM The following Medications were prescribed to the patient: Zofran 4 mg: Take 1 orally every six hours as needed for nausea/vomiting. Dispense ten (10). No refills. Substitution is permissible. -- Michel Amador DO Ativan 1 mg: take 1 orally every 8 hours as needed for anxiety. Dispense five (5). No refill. Substitution is permissible. -- Michel Amador DO Prilosec 20 mg capsules: Take 1 capsule orally once daily. Dispense fifteen (15). No refills. Substitution is permissible. -- Michel Amador DO
== END 2016-12-17 14:59 | disposition home or self-care (01) ==
LOC: ED SRH 11:49
DX: R07.89 Other chest pain (principal); F41.1 Generalized anxiety disorder; I10 Essential (primary) hypertension; R79.89 Other specified abnormal findings of blood chemistry; Z79.899 Other long term (current) drug therapy
CPT/HCPCS: 90004; 90100; 90616; 91320; 91556; 92010; 92530; 92610; 92720; 93140; 95059